=== PATIENT | female | born 1995 | race Caucasian/White ===

== ENCOUNTER 2016-12-30 23:07 | Emergency (ER) | payer MEDICAID ==
[~2016-12-30] VITALS: Ht 154.9 cm; Wt 64.2 kg
[2016-12-31 00:06] LABS: CALCIUM 8.5 mg/dL (8.5-10.1); CARBON DIOXIDE 30.2 mmol/L (21-32); CHLORIDE SERUM 103 mmol/L (98-107); CREATININE SERUM 0.8 mg/dL (0.6-1.0); GFR1 > 60 mL/min; GLUCOSE SERUM 100 mg/dL (74-106); POTASSIUM SERUM 4.1 mmol/L (3.5-5.1); SODIUM SERUM 140 mmol/L (136-145)
[2016-12-31 00:07] LABS: BASOPHIL % 0.3 % (0-2); PLATELET COUNT 319 x10^3mcL (130-400)
[2016-12-31 00:10] LABS: RED CELL DISTRIBUTION WIDTH 16.7 % (11.5-14.5)
[2016-12-31 00:11] LABS: ALBUMIN 3.7 g/dL (3.4-5.0); ALKALINE PHOSPHATASE 93 U/L (46-116); ALT/SGPT 24 U/L (14-59); AST/SGOT 15 U/L (15-37); BILIRUBIN TOTAL 0.2 mg/dL (0.20-1.00); LIPASE 167 IU/L (73-393)
[2016-12-31 02:00] VITALS: BP 100/47
== END 2016-12-31 02:00 | disposition home or self-care (01) ==
LOC: ED 23:07
PROVIDERS: Emergency Medicine
DX: K80.20 Calculus of gallbladder without cholecystitis without obstruction (principal)
CPT/HCPCS: 36415; J1885; Q0092

== ENCOUNTER 2017-06-17 00:01 | Emergency (ER) | payer MEDICAID | END 2017-06-17 01:05 | disposition left against medical advice (07) | LOC: ED 00:01 | DX: Z53.21 Procedure and treatment not carried out due to patient leaving prior to being seen by health care provider (principal) ==

== ENCOUNTER 2017-08-11 11:46 | Emergency (ER) | payer MEDICAID ==
[~2017-08-11] VITALS: Ht 154.9 cm; Wt 65.3 kg
[2017-08-11 11:53] VITALS: BP 118/75; Ht 154.9 cm; Wt 65.3 kg
== END 2017-08-11 14:18 | disposition home or self-care (01) ==
LOC: ED 11:46
DX: S16.1XXA Strain of muscle, fascia and tendon at neck level, initial encounter (principal); M79.1 Myalgia; M25.512 Pain in left shoulder; R07.81 Pleurodynia; M79.602 Pain in left arm; K21.9 Gastro-esophageal reflux disease without esophagitis; V49.59XA Passenger injured in collision with other motor vehicles in traffic accident, initial encounter; Y93.89 Activity, other specified; Y99.8 Other external cause status; Y92.89 Other specified places as the place of occurrence of the external cause
CPT/HCPCS: J1885